=== PATIENT | female | born 1985 | race Caucasian/White ===

== ENCOUNTER 2017-01-04 19:39 | Emergency (ER) | payer OTHER ==
[~2017-01-04 19:39] MED LIST: BROMFED DM PO; MACROBID 100 M100 MG PO; NAPROSYN PO; NO MEDICATIONS
== END 2017-01-04 20:18 | disposition home or self-care (01) ==
LOC: SED 19:39
DX: T40.1X1A Poisoning by heroin, accidental (unintentional), initial encounter (principal); F11.129 Opioid abuse with intoxication, unspecified; K08.89 Other specified disorders of teeth and supporting structures
CPT/HCPCS: 96374; 99283